=== PATIENT | female | born 1990 | race African-American/Black ===

== ENCOUNTER 2018-06-02 00:04 | Emergency (ER) | payer SELFPAY ==
[2018-06-02 00:09] VITALS: BP 122/75; PULSE 85; TEMP 98.3; BMI 37.7
[2018-06-02] MEDS ORDERED: valACYclovir HCL 1000 MG TABLET PO ONE (00:36)
[2018-06-02] MEDS ORDERED: diphenhydrAMINE HCL 25 MG CAPSULE (FP) PO ONE ×2 (00:37→00:49)
--- NOTE | 2018-06-02 00:45 | PDOC ---
History of Present Illness - General Chief Complaint: Allergic Reaction Stated Complaint: ALLERGIC REACTION Time Seen by Provider: 06/02/18 00:25 History Source: Patient Exam Limitations: No Limitations - History of Present Illness Initial Comments: 06/02/18 00:40 27F with no pmh presents to the ED for lip swelling for the past 2 days. Starting with lower lip tingling. After googling symptoms patient applied cold sore cream which parched her lips, after which she peeled off all the skin off her lips and applied vitamin A and E hand cream. Lips are now swollen and lower lip is still tingling Past History - Past Medical History Allergies/Adverse Reactions: Allergies Allergy/AdvReac Type Severity Reaction Status Date / Time No Known Allergies Allergy Verified 06/02/18 00:08 Home Medications: Ambulatory Orders Valacyclovir HCl [Valtrex -] 2,000 mg PO ONCE #1 dose 06/02/18 COPD: No - Suicide/Smoking/Psychosocial Hx Smoking History: Never smoked Review of Systems - Review of Systems Able to Perform ROS?: Yes Is the patient limited [place] proficient: No Constitutional: No: Symptoms Reported HEENTM: No: Symptoms Reported, Ear Discharge, Nose Pain, Nose Congestion, Throat Swelling, Mouth Pain, Mouth Swelling Respiratory: No: Symptoms reported Cardiac (ROS): No: Symptoms Reported ABD/GI: No: Symptoms Reported : No: Symptoms Reported Musculoskeletal: No: Symptoms Reported Integumentary: No: Symptoms Reported Neurological: No: Symptoms reported *Physical Exam - Vital Signs Last Vital Signs Temp Pulse Resp BP Pulse Ox 98.3 F 85 18 122/75 99 06/02/18 00:07 06/02/18 00:07 06/02/18 00:07 06/02/18 00:07 06/02/18 00:07 - Physical Exam General Appearance: Yes: Nourished, Appropriately Dressed. No: Apparent Distress HEENT: positive: EOMI, ZEINAB, Normal ENT Inspection, Other (swollen lips with possible herpetic lesion under the upper lip) Respiratory/Chest: positive: Lungs Clear, Normal Breath Sounds. negative: Chest Tender, Respiratory Distress Cardiovascular: positive: Regular Rhythm, Regular Rate, S1, S2 Gastrointestinal/Abdominal: positive: Normal Bowel Sounds, Flat, Soft. negative : Tender Medical Decision Making - Medical Decision Making 06/02/18 00:50 2g valacyclovir, benadryl, D/C *DC/Admit/Observation/Transfer Diagnosis at time of Disposition: Herpes labialis without complication - Discharge Dispostion Disposition: HOME Decision to Admit order: No - Referrals - Patient Instructions Printed Discharge Instructions: DI for Cold Sores Additional Instructions: Come back to the ER for any new, worsening or concerning symptoms. - Post Discharge Activity
[2018-06-02] MEDS ORDERED: valACYclovir HCL 500 MG TABLET (FP) ONE (00:49)
--- NOTE | 2018-06-02 00:50 | PDOC ---
Attending Attestation - HPI HPI: 06/02/18 01:19 The patient is a 27 year old female, with no significant past medical history, who presents to the emergency department with, 2 days of lip swelling and lower lip tingling. As per patient, she shared a hookah tip with a friend just prior to the onset of her symptoms. She notes she googled her symptoms and believed it was a cold sore and applied cold sore cream. Her lips then became chapped and she peeled off the dry skin and applied A and E hand cream. The patient endorses swelling to both top and bottom lips and tingling to the bottom lip. She denies recent fevers, chills, headache or dizziness. She denies recent nausea, vomit, diarrhea or constipation. She denies recent dysuria, frequency, urgency or hematuria. She denies recent chest pain or shortness of breath. Allergies: NKA - Physicial Exam PE: 06/02/18 01:19 GENERAL: Awake, alert, and fully oriented, in no acute distress HEAD: No signs of trauma EYES: PERRLA, EOMI, sclera anicteric, conjunctiva clear +ENT: Herpatic lesions on the bilateral lips top> bottom. Auricles normal inspection, hearing grossly normal, nares patent, oropharynx clear without exudates. Moist mucosa NECK: Normal ROM, supple, no lymphadenopathy, JVD, or masses LUNGS: Breath sounds equal, clear to auscultation bilaterally. No wheezes, and no crackles HEART: Regular rate and rhythm, normal S1 and S2, no murmurs, rubs or gallops ABDOMEN: Soft, nontender, normoactive bowel sounds. No guarding, no rebound. No masses EXTREMITIES: Normal range of motion, no edema. No clubbing or cyanosis. No cords, erythema, or tenderness NEUROLOGICAL: Cranial nerves II through XII grossly intact. Normal speech, normal gait SKIN: Warm, Dry, normal turgor, no rashes or lesions noted. <Laureano Fine - Last Filed: 06/02/18 01:19> - Resident Resident Name: Pierce Schneider - ED Attending Attestation I have performed the following: I have examined & evaluated the patient, The case was reviewed & discussed with the resident, I agree w/resident's findings & plan - HPI HPI: 06/02/18 00:55 Pt comes with herpes labialis that she thinks she contracted from a public hookah - Physicial Exam PE: 06/02/18 00:55 Agree with resident exam - Medical Decision Making 06/02/18 00:55 Valtrex PO 2g and follow with PMD. <Caroline Vaughan - Last Filed: 06/02/18 02:23> Attestations - Attestations 06/02/18 01:20 Documentation prepared by Laureano Fine, acting as medical technologist clinical for Caroline Vaughan MD. <Laureano Fine - Last Filed: 06/02/18 01:19>
== END 2018-06-02 01:10 | disposition home or self-care (01) ==
LOC: JER 00:04
DX: B00.1 Herpesviral vesicular dermatitis (principal)
CPT/HCPCS: 99281-25

== ENCOUNTER 2022-07-26 16:16 | Emergency (ER) | payer BC, OTHER ==
[2022-07-26 16:25] VITALS: BP 121/78; PULSE 96; RESP 18; TEMP 97.8; BMI 38.0
[2022-07-26 18:49] LABS: EOS % 2.1 % (0-4.5); HEMATOCRIT 41.6 % (32.4-45.2); HEMOGLOBIN 13.9 GM/dL (10.7-15.3); LYMPH % 18.3 % (8-40); MCH 30.4 pg (25.7-33.7); MCHC 33.5 g/dl (32.0-36.0); MEAN CELL VOLUME 90.5 fl (80-96); MONO % 8.3 % (3.8-10.2); NEUT % 70.3 % (42.8-82.8); PLATELET COUNT 302 10^3/uL (134-434); RBC 4.59 M/mm3 (3.60-5.2); RDW 12.9 % (11.6-15.6); WHITE BLOOD COUNT 6.2 K/mm3 (4.0-10.0)
[2022-07-26 19:04] LABS: BLOOD UREA NITROGEN 6.7 mg/dL (7-18); CALCIUM 9.1 mg/dL (8.5-10.1)
[2022-07-26 19:05] LABS: ALBUMIN 3.7 g/dl (3.4-5.0)
[2022-07-26 19:07] LABS: CREATININE 0.7 mg/dL (0.55-1.3)
[2022-07-26 19:09] LABS: BILIRUBIN,TOTAL 0.3 mg/dL (0.2-1); TOT PROT 6.9 g/dl (6.4-8.2)
== END 2022-07-26 19:37 | disposition home or self-care (01) ==
LOC: JER 16:16 → JERFT 16:16
DX: O03.9 Complete or unspecified spontaneous abortion without complication (principal)
CPT/HCPCS: 36415; 80053; 84702; 85025; 86850; 86900; 86901; 99283-25